=== PATIENT | female | born 2000 | race Caucasian/White ===

== ENCOUNTER → 2019-06-22 | Outpatient (CLI) | payer OTHER ==
--- NOTE | 2019-06-22 16:23 | REP ---
Obstetric ultrasound for anatomy: There is a single intrauterine gestation in a footling breech presentation. There is motion and cardiac activity. The heart rate is 150 beats minute. The placenta is anterior. There is no previa or abruptio. The placenta is grade 1. The amniotic fluid volume subjectively is normal. The cervix measures 2.6 cm length. Gestational age by today's ultrasound is 19 weeks 2 days/TERESE 11/14/2019. Gestational age by LMP is 18 weeks 4 days/TERESE 11/19/2019. weight is 288 grams/0 pounds, 10 ounces. This is the 76 percentile for 18 weeks 4 days. The following anatomic structures are identified and are unremarkable: Cranium, choroid plexus, cerebellum, facial profile, face, upper lip, lungs, four-chamber heart, cardiac right and left ventricular outflow tracts, diaphragm, stomach, cord insertion, three-vessel cord, kidneys, bladder and upper lower extremities. Suboptimally demonstrated because of position is the spine. A followup study dedicated to the spine might be considered. Otherwise, there are no anomalies. Electronically Signed by Madi Caldwell MD 06/22/2019 04:15 P
== END ==
LOC: M RAD 14:27
PROVIDERS: ATTEND Advanced Practice Midwife
DX: Z34.82 Encounter for supervision of other normal pregnancy, second trimester (principal); Z36.89 Encounter for other specified antenatal screening; Z3A.19 19 weeks gestation of pregnancy

== ENCOUNTER → 2020-07-24 | Outpatient (CLI) | payer OTHER ==
--- NOTE | 2020-07-24 10:22 | REP ---
INDICATION: ANATOMY. COMPARISON: None. TECHNIQUE: Multiple transabdominal and Doppler ultrasound images. FINDINGS: There is a single intrauterine gestation in a breech presentation. The placenta is anterior, grade 0, without previa. The umbilical cord insertion on the placenta is located centrally on the placenta. The cord insertion is unremarkable and demonstrates a 3 vessel cord. The cervix measures 3.7 cm in length. heart rate is 146 beats per minute. The composite ultrasound gestational age is 22 weeks 1 day with an TERESE of 11/26/2020. Gestational age by LMP is 22 weeks 2 days with an TERESE of 11/25/2020. The estimated weight is 484 g, 1 lb-1 oz. This is the 39th percentile for 22 weeks 2 days. The following anatomic structures are identified and are unremarkable: Cranium, cavum septum pellucidum, falx, intracranial ventricles, choroid plexus, cerebellum, cisterna magna, facial profile, upper lip, diaphragm, stomach, right and left kidneys, bladder, spine, right and left upper extremities, right left lower extremities, 3 vessel cord. Suboptimally demonstrated because of position are the four-chamber view of the heart, in the cardiac right left ventricular outflow tracts. A follow-up study dedicated to the structures might be considered. IMPRESSION: anatomy as described. A follow-up study might be considered for evaluation of those structures not optimally visualized today. <Electronically signed by Madi Caldwell > 07/24/20 1019
== END ==
LOC: M WHC 08:18
PROVIDERS: ATTEND Specialist
DX: Z34.82 Encounter for supervision of other normal pregnancy, second trimester (principal); Z3A.22 22 weeks gestation of pregnancy

== ENCOUNTER 2024-06-24 13:02 | Emergency (ER) | payer OTHER ==
[~2024-06-24] VITALS: Ht 157.5 cm; Wt 60.0 kg
[2024-06-24] MEDS ORDERED: MULTTAB20 PO (13:12)
[2024-06-24 13:37] LABS: BASO % 0.4 % (0.0-1.0); EOS # 0.2 10^3/uL (0.0-0.5); EOS % 2.2 % (0.0-3.0); HEMATOCRIT 38.7 % (36.0-47.0); HEMOGLOBIN 13.1 g/dl (12.0-15.5); LYMPH # 2.4 10^3/uL (1.5-5.0); LYMPH % 22.1 % (24.0-44.0); MEAN CORPUSCULAR HEMOGLOBIN 27.6 pg (27.0-33.0); MEAN CORPUSCULAR HGB CONC 33.9 g/dl (32.0-36.5); MEAN CORPUSCULAR VOLUME 81.5 fl (80.0-96.0); MONO # 0.7 10^3/uL (0.0-0.8); MONO % 6.4 % (2.0-8.0); NEUTROPHILS # 7.4 10^3/uL (1.5-8.5); NEUTROPHILS % 68.4 % (36.0-66.0); PLATELET COUNT, AUTOMATED 326 10^3/uL (150-450); RED BLOOD COUNT 4.75 10^6/uL (4.00-5.40); WHITE BLOOD COUNT 10.8 10^3/uL (4.0-10.0)
[2024-06-24 14:03] LABS: BLOOD UREA NITROGEN 9 MG/DL (9-23); CALCIUM LEVEL 9.9 MG/DL (8.5-10.1); CARBON DIOXIDE LEVEL 26 MMOL/L (20-31); CHLORIDE LEVEL 106 MMOL/L (98-107); CREATININE FOR GFR 0.52 MG/DL (0.55-1.30); GLOMERULAR FILTRATION RATE > 60.0 (>60); GLUCOSE, FASTING 85 MG/DL (60-100); POTASSIUM SERUM 3.9 MMOL/L (3.5-5.1); SODIUM LEVEL 138 MMOL/L (136-145)
[2024-06-24 14:30] VITALS: BP 113/57; TEMP 97.9; O2SAT 97
[2024-06-24 14:31] LABS: HCG, SERUM QUANTITATIVE 110925.2 MIU/ML (<4.2)
== END 2024-06-24 14:41 | disposition home or self-care (01) ==
LOC: M ED 13:02
DX: O20.0 Threatened abortion (principal)

== ENCOUNTER → 2024-12-21 | Outpatient (CLI) | payer OTHER ==
[~2024-12-21] MED LIST: MULTTAB20 PO
== END ==
LOC: M LAB 07:50
PROVIDERS: ATTEND Obstetrics & Gynecology Obstetrics
DX: O99.810 Abnormal glucose complicating pregnancy (principal); Z3A.00 Weeks of gestation of pregnancy not specified

== ENCOUNTER 2025-04-02 19:11 | Emergency (ER) | payer OTHER ==
[~2025-04-02] VITALS: Ht 157.5 cm; Wt 61.4 kg
[2025-04-02 19:13] VITALS: TEMP 98.2
[2025-04-02] MEDS ORDERED: DOCU100C16 (19:27)
[2025-04-02] MEDS ORDERED: OXYC1TAB23 (19:27)
[2025-04-02 20:07] LABS: PLATELET COUNT, AUTOMATED 446 10^3/uL (150-450)
[2025-04-02] MEDS: ACETAMINOPHEN *IV* 1,000 MG in IV 1 EA IV ONE (20:18)
[2025-04-02 20:29] LABS: CALCIUM LEVEL 9.8 MG/DL (8.5-10.1); CARBON DIOXIDE LEVEL 26 MMOL/L (20-31); CHLORIDE LEVEL 104 MMOL/L (98-107); CREATININE FOR GFR 0.65 MG/DL (0.55-1.30); GLOMERULAR FILTRATION RATE > 90.0 (>60); POTASSIUM SERUM 3.9 MMOL/L (3.5-5.1); SODIUM LEVEL 141 MMOL/L (136-145)
[2025-04-02] MEDS ORDERED: ISOVUE-370 76% 100 ML VIAL As Ordered ONE (20:39)
[2025-04-02 20:47] LABS: BASO # 0.0 10^3/uL (0.0-0.2); BASO % 0.4 % (0.0-1.0); EOS # 0.3 10^3/uL (0.0-0.5); EOS % 2.9 % (0.0-3.0); LYMPH # 1.9 10^3/uL (1.5-5.0); LYMPH % 20.8 % (24.0-44.0); MONO # 1.1 10^3/uL (0.0-0.8); MONO % 11.6 % (2.0-8.0); NEUTROPHILS # 5.8 10^3/uL (1.5-8.5); NEUTROPHILS % 63.9 % (36.0-66.0); PLATELET COUNT, AUTOMATED 404 10^3/uL (150-450)
[2025-04-02 21:00] LABS: ALT/SGPT 17 U/L (7.0-40); AST/SGOT 17 U/L (<34); CALCIUM LEVEL 9.2 MG/DL (8.5-10.1); CARBON DIOXIDE LEVEL 26 MMOL/L (20-31); CHLORIDE LEVEL 106 MMOL/L (98-107); CREATININE FOR GFR 0.61 MG/DL (0.55-1.30); GLOMERULAR FILTRATION RATE > 90.0 (>60); POTASSIUM SERUM 3.5 MMOL/L (3.5-5.1); SODIUM LEVEL 142 MMOL/L (136-145)
[2025-04-02 21:11] LABS: INR 1.03
[2025-04-03] MEDS: VANCOMYCIN HCL 1,000 MG, VIAL MATE ADAPTER 1 EACH in NS 250 ML IV STA (00:32)
[2025-04-03] MEDS: PIPERACILLIN/TAZOBACTAM SOD 3.375 GM in DEXTROSE 5% (D5W) ADV/MINI-BAG 50 ML IV ONE (00:32)
[2025-04-03 00:36] LABS: PLATELET COUNT, AUTOMATED 443 10^3/uL (150-450)
[2025-04-03] MEDS ORDERED: VANC1CAP7 PO (00:58)
[2025-04-03] MEDS ORDERED: AUGM500T34 PO (00:58)
[2025-04-03] MEDS ORDERED: PROBCAP14 PO (00:58)
[2025-04-03] MEDS ORDERED: DICY-61 PO (01:06)
[2025-04-03 02:15] VITALS: BP 98/59; O2SAT 97
[2025-04-03] MEDS: DICYCLOMINE 10 MG CAP PO ONE (02:22)
== END 2025-04-03 02:27 | disposition home or self-care (01) ==
LOC: M ED 19:11
DX: K64.4 Residual hemorrhoidal skin tags (principal); K56.41 Fecal impaction; Z48.815 Encounter for surgical aftercare following surgery on the digestive system; Z79.899 Other long term (current) drug therapy
CPT/HCPCS: 74174; 80048; 80053; 83605; 83690; 85025; 85027; 85610; 85730; 86850; 86900; 86901; 87507; 93041; 96365; 96366; 96368; 99285; J0131; J2543; J3373; Q9967

== ENCOUNTER → 2025-05-10 | Outpatient (REF) | payer OTHER, MEDICAID ==
[~2025-05-10] MED LIST changes: +AUGM500T34 PO; +DICY-61 PO; +DOCU100C16; +OXYC1TAB23; +PROBCAP14 PO; +VANC1CAP7 PO
[2025-05-10 16:33] LABS: BASO # 0.1 10^3/uL (0.0-0.2); BASO % 0.7 % (0.0-1.0); EOS # 0.2 10^3/uL (0.0-0.5); EOS % 1.9 % (0.0-3.0); LYMPH # 2.9 10^3/uL (1.5-5.0); LYMPH % 29.1 % (24.0-44.0); MONO # 0.7 10^3/uL (0.0-0.8); MONO % 7.1 % (2.0-8.0); NEUTROPHILS # 6.1 10^3/uL (1.5-8.5); NEUTROPHILS % 60.9 % (36.0-66.0); PLATELET COUNT, AUTOMATED 388 10^3/uL (150-450)
[2025-05-10 16:38] LABS: ALT/SGPT 18 U/L (7.0-40); AST/SGOT 16 U/L (<34); CALCIUM LEVEL 9.5 MG/DL (8.5-10.1); CARBON DIOXIDE LEVEL 27 MMOL/L (20-31); CHLORIDE LEVEL 107 MMOL/L (98-107); CHOLESTEROL LEVEL 192 MG/DL (<200); CHOLESTEROL RISK RATIO 4.42 (<5); CREATININE FOR GFR 0.61 MG/DL (0.55-1.30); GLOMERULAR FILTRATION RATE > 90.0 (>60); IRON (FE) 14 UG/DL (50-170); LDL CHOLESTEROL 119.2 MG/DL (<100); NON-HDL-C 148.6 MG/DL; PERCENT SATURATION 3.9 % (13.2-45.0); POTASSIUM SERUM 4.4 MMOL/L (3.5-5.1); SODIUM LEVEL 140 MMOL/L (136-145); TRIGLYCERIDES LEVEL 147 MG/DL (<150)
[2025-05-10 16:40] LABS: TOTAL 25(OH) VITAMIN D 34.2 NG/ML (20.0-100.0)
== END ==
LOC: M LAB REF 16:10
PROVIDERS: ATTEND Pediatrics
DX: D50.9 Iron deficiency anemia, unspecified (principal); E55.9 Vitamin D deficiency, unspecified; E66.3 Overweight; Z68.25 Body mass index [BMI] 25.0-25.9, adult